=== PATIENT | female | born 2000 ===

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

== ENCOUNTER → 2022-07-31 | Outpatient (REF) | payer BC, OTHER | LOC: M LAB REF 13:35 | PROVIDERS: ATTEND Physician Assistant | DX: B34.9 Viral infection, unspecified (principal) ==